=== PATIENT | female | born 1995 | race Caucasian/White ===

== ENCOUNTER 2022-07-11 07:25 | Emergency (ER) | payer BC, MEDICAID ==
[2022-08-06 05:13] LABS: ESTIMATED GFR 127 mL/min (>60)
== END 2022-07-11 09:18 | disposition home or self-care (01) ==
LOC: JP.ED 07:25
DX: O90.89 Other complications of the puerperium, not elsewhere classified (principal); O90.0 Disruption of cesarean delivery wound
CPT/HCPCS: 36415; 80053; 81001; 83690; 83880; 85025; 85610; 85730; 99284